=== PATIENT | female | born 1930 | race Caucasian/White ===

== ENCOUNTER 2017-02-05 21:54 | Inpatient (IN) | payer OTHER, MEDICARE, MEDICAID ==
[~2017-02-05] VITALS: Ht 152.4 cm; Wt 74.4 kg
[~2017-02-05 21:54] MED LIST: CLON0.1T PO; INSLAN SQ; LEVO75TA7 PO; MIRT15TA6 PO; SITA100T11 PO; VALS80TA2 PO; insulin
[2017-02-05 23:47] LABS: BASOPHILS % 0.4 % (0.0-2.0); EOSINOPHILS % 0.7 % (0.0-5.0); HEMATOCRIT. 30.9 % (36.0-48.0); HEMOGLOBIN. 9.9 g/dL (12.0-16.0); LYMPHOCYTES % 14.5 % (20.0-50.0); MEAN CORPUSCULAR VOLUME 81.3 fL (81.0-99.0); MEAN PLATELET VOLUME 9.3 fl (7.4-10.4); MONOCYTES % 13.6 % (2.0-8.0); NEUTROPHILS % 70.8 % (40.0-76.0); PLATELET 197 x1000/uL (130-400); RED BLOOD CELL COUNT 3.81 mill/uL (4.2-5.4); RED CELL DISTRIBUTION WIDTH 19.4 % (11.6-14.6)
[2017-02-05 23:55] LABS: CARBON DIOXIDE 32 mEq/L (21-32); CHLORIDE 100 mEq/L (98-107); TROPONIN I < 0.02 ng/mL (0.00-0.04)
[2017-02-06 00:18] LABS: BG BASE EXCESS 2.9 mmol/L (-2.0-2.0); BG DEOXYHEMOGLOBIN 2.7 % (0.0-5.0); BG FRACTION INSPIRED OXYGEN 28; BG HCO3 ACT 29.7 mmol/L (22.0-26.0); BG METHEMOGLOBIN 0.1 % (0.0-1.5); BG OXYGEN SATURATION 97.3 % (92.0-98.5); BG OXYHEMOGLOBIN 96.2 % (94.0-97.0); BG PCO2 55.9 mmHg (35.0-45.0); BG PH 7.343 (7.350-7.450); BG PO2 95.1 mmHg (75.0-100.0); BG SAMPLE SITE RIGHT BRACHIAL; BG TOTAL HEMOGLOBIN 11.9 g/dL (12.0-18.0); BG VENT MODE NASAL CANNULA
[2017-02-06] MEDS ORDERED: MAGNESIUM/ALUMINUM HYDROXIDE/SIMETHICONE 30ML UDC PO PRN (09:00)
[2017-02-06] MEDS ORDERED: ACETAMINOPHEN 650MG/20.3ML UDC GT PRN (09:00)
[2017-02-06] MEDS ORDERED: DIPHENHYDRAMINE 50MG/ML VIAL IV PRN (09:00)
[2017-02-06] MEDS ORDERED: ENOXAPARIN 40MG/0.4ML SYR SUBCUT SCH (09:00)
[2017-02-06] MEDS ORDERED: IPRATROPIUM/ALBUTEROL 0.5-3(2.5)MG/3ML NEB INH PRN (09:00)
[2017-02-06] MEDS ORDERED: GUAIFENESIN 200MG/10ML SUGAR FREE UDC PO PRN (09:00)
[2017-02-06] MEDS ORDERED: CLONIDINE 0.1MG TABLET PO PRN (09:00)
[2017-02-06] MEDS ORDERED: NA PHOS,M-B/NA PHOS,DI-BA ENEMA 118ML PR PRN (09:00)
[2017-02-06] MEDS ORDERED: HYDROCODONE/ACETAMINOPHEN 5/325MG TABLET PO PRN (09:00)
[2017-02-06] MEDS ORDERED: ACETAMINOPHEN 325MG TABLET PO PRN (09:00)
[2017-02-06] MEDS ORDERED: ONDANSETRON HCL 4MG/2ML VIAL IV PRN (09:00)
[2017-02-06] MEDS ORDERED: LORAZEPAM 2MG/ML CPJ IV PRN (09:00)
[2017-02-06 09:22] LABS: BASOPHILS % 0.6 % (0.0-2.0); EOSINOPHILS % 1.3 % (0.0-5.0); HEMATOCRIT. 29.6 % (36.0-48.0); HEMOGLOBIN. 9.2 g/dL (12.0-16.0); LYMPHOCYTES % 13.9 % (20.0-50.0); MEAN CORPUSCULAR HEMOGLOBIN 25.3 pg (28.0-32.0); MEAN CORPUSCULAR VOLUME 81.4 fL (81.0-99.0); MEAN PLATELET VOLUME 8.9 fl (7.4-10.4); MONOCYTES % 12.1 % (2.0-8.0); NEUTROPHILS % 72.1 % (40.0-76.0); PLATELET 185 x1000/uL (130-400); RED BLOOD CELL COUNT 3.64 mill/uL (4.2-5.4); RED CELL DISTRIBUTION WIDTH 19.9 % (11.6-14.6)
[2017-02-06 09:27] LABS: CHLORIDE 101 mEq/L (98-107)
[2017-02-06 09:38] LABS: CARBON DIOXIDE 32 mEq/L (21-32)
[2017-02-06 09:58] VITALS: BP 131/52
[2017-02-06] MEDS: FUROSEMIDE 40MG/4ML VIAL IV SCH (10:28)
[2017-02-06] MEDS ORDERED: ERGO500013 PO (11:07)
[2017-02-06] MEDS ORDERED: CARB1TAB5 PO (11:07)
[2017-02-06] MEDS ORDERED: GABA-531 PO (11:07)
[2017-02-06] MEDS ORDERED: APIX2.5T PO (11:07)
[2017-02-06] MEDS ORDERED: TAMS-11 PO (11:07)
[2017-02-06] MEDS ORDERED: FURO40TA5 PO (11:07)
[2017-02-06] MEDS ORDERED: HYDR200T PO (11:07)
[2017-02-06] MEDS ORDERED: ESCI10TA PO (11:07)
[2017-02-06] MEDS ORDERED: PRAV80TA PO (11:07)
[2017-02-06] MEDS ORDERED: ALBU90AE IH (11:07)
[2017-02-06] MEDS ORDERED: MIRT30TA PO (11:07)
[2017-02-06] MEDS ORDERED: METO25TA6 PO (11:07)
[2017-02-06] MEDS ORDERED: NEPVIT PO (11:07)
[2017-02-06] MEDS ORDERED: INSLIS SUBCUT (11:07)
[2017-02-06] MEDS ORDERED: DONE10TA11 PO (11:07)
[2017-02-06] MEDS ORDERED: LANTUSUD SUBCUT (11:07)
[2017-02-06] MEDS ORDERED: MELA3TAB PO (11:07)
[2017-02-06] MEDS ORDERED: OMEP20CA10 PO (11:07)
[2017-02-06] MEDS ORDERED: ONDA4TAB5 PO (11:07)
[2017-02-06] MEDS ORDERED: SENN-169 PO (11:07)
[2017-02-06 11:21] VITALS: BP 138/63
[2017-02-06] MEDS: ENOXAPARIN 30MG/0.3ML SYR SUBCUT SCH (11:49)
[2017-02-06 12:11] VITALS: BP 131/52
[2017-02-06] MEDS: IPRATROPIUM/ALBUTEROL 0.5-3(2.5)MG/3ML NEB INH SCH ×2 (13:02→20:04)
[2017-02-06 15:30] VITALS: BP 101/52
[2017-02-06] MEDS: SODIUM CHLORIDE 0.9% INJ 3ML FLUSH IVF SCH ×2 (17:10→23:03)
[2017-02-06 18:36] LABS: CREATINE KINASE 36 IU/L (26-192); TROPONIN I < 0.02 ng/mL (0.00-0.04)
[2017-02-06] MEDS ORDERED: DEXTROSE 50% WATER 50ML SYRINGE IV PRN (18:45)
[2017-02-06 18:50] LABS: HEPATITIS B SURFACE ANTIGEN NEGATIVE
[2017-02-06 20:00] VITALS: BP 104/62
[2017-02-06] MEDS: BLOOD SUGAR DIAGNOSTIC STRIP TEST SCH (21:00)
[2017-02-06] MEDS: INSULIN LISPRO 100 UNITS/ML SUBCUT SCH (21:00)
[2017-02-06] MEDS: EPOETIN ALFA 4000UNITS/ML VIAL SUBCUT SCH (23:03)
[2017-02-07] VITALS: BP 113/61
[2017-02-07] MEDS: IPRATROPIUM/ALBUTEROL 0.5-3(2.5)MG/3ML NEB INH SCH ×4 (01:40→20:27)
[2017-02-07 01:56] LABS: CREATINE KINASE 34 IU/L (26-192); TROPONIN I < 0.02 ng/mL (0.00-0.04)
[2017-02-07 04:00] VITALS: BP 121/58
[2017-02-07 06:55] LABS: BASOPHILS % 0.7 % (0.0-2.0); EOSINOPHILS % 0.6 % (0.0-5.0); HEMATOCRIT. 30.2 % (36.0-48.0); HEMOGLOBIN. 9.4 g/dL (12.0-16.0); LYMPHOCYTES % 13.2 % (20.0-50.0); MEAN CORPUSCULAR HEMOGLOBIN 25.8 pg (28.0-32.0); MEAN CORPUSCULAR VOLUME 82.9 fL (81.0-99.0); NEUTROPHILS % 74.5 % (40.0-76.0); PLATELET 183 x1000/uL (130-400); RED BLOOD CELL COUNT 3.64 mill/uL (4.2-5.4); RED CELL DISTRIBUTION WIDTH 19.9 % (11.6-14.6)
[2017-02-07] MEDS: BLOOD SUGAR DIAGNOSTIC STRIP TEST SCH ×4 (07:20→20:58)
[2017-02-07 07:41] LABS: CARBON DIOXIDE 28 mEq/L (21-32); CHLORIDE 103 mEq/L (98-107)
[2017-02-07] MEDS: INSULIN LISPRO 100 UNITS/ML SUBCUT SCH ×4 (07:50→20:58)
[2017-02-07 08:00] VITALS: BP 136/67
[2017-02-07] MEDS: FUROSEMIDE 40MG/4ML VIAL IV SCH (08:52)
[2017-02-07] MEDS: ENOXAPARIN 30MG/0.3ML SYR SUBCUT SCH (08:52)
[2017-02-07 11:01] LABS: BG BASE EXCESS 2.1 mmol/L (-2.0-2.0); BG DEOXYHEMOGLOBIN 4.2 % (0.0-5.0); BG FRACTION INSPIRED OXYGEN 28; BG HCO3 ACT 28.8 mmol/L (22.0-26.0); BG METHEMOGLOBIN 0.2 % (0.0-1.5); BG OXYGEN SATURATION 95.8 % (92.0-98.5); BG OXYHEMOGLOBIN 95.6 % (94.0-97.0); BG PCO2 55.3 mmHg (35.0-45.0); BG PH 7.334 (7.350-7.450); BG PO2 84.3 mmHg (75.0-100.0); BG SAMPLE SITE RIGHT BRACHIAL; BG TOTAL HEMOGLOBIN 10.7 g/dL (12.0-18.0); BG VENT MODE NASAL CANNULA
[2017-02-07 12:00] VITALS: BP 130/64
[2017-02-07] MEDS: SODIUM CHLORIDE 0.9% INJ 3ML FLUSH IVF SCH ×3 (13:15→20:59)
[2017-02-07 16:00] VITALS: BP 123/59
[2017-02-07] MEDS: DOCUSATE SODIUM 100MG CAPSULE PO PRN (17:47)
[2017-02-07 19:32] VITALS: BP 110/60
[2017-02-08] VITALS (7 sets, daily range): BP systolic 105–152; BP diastolic 47–82
[2017-02-08] MEDS: IPRATROPIUM/ALBUTEROL 0.5-3(2.5)MG/3ML NEB INH SCH ×4 (01:33→20:35)
[2017-02-08] MEDS: SODIUM CHLORIDE 0.9% INJ 3ML FLUSH IVF SCH ×3 (06:00→21:39)
[2017-02-08] MEDS: BLOOD SUGAR DIAGNOSTIC STRIP TEST SCH ×4 (06:34→21:40)
[2017-02-08 08:00] LABS: BASOPHILS % 0.6 % (0.0-2.0); EOSINOPHILS % 0.5 % (0.0-5.0); HEMATOCRIT. 31.8 % (36.0-48.0); LYMPHOCYTES % 11.3 % (20.0-50.0); MEAN CORPUSCULAR HEMOGLOBIN 26.1 pg (28.0-32.0); MEAN CORPUSCULAR VOLUME 82.8 fL (81.0-99.0); MONOCYTES % 9.3 % (2.0-8.0); NEUTROPHILS % 78.3 % (40.0-76.0); PLATELET 202 x1000/uL (130-400); RED BLOOD CELL COUNT 3.84 mill/uL (4.2-5.4); RED CELL DISTRIBUTION WIDTH 20.2 % (11.6-14.6)
[2017-02-08 08:23] LABS: PHOSPHORUS 3.5 mg/dL (2.5-4.9)
[2017-02-08] MEDS: INSULIN LISPRO 100 UNITS/ML SUBCUT SCH ×4 (08:40→21:00)
[2017-02-08] MEDS: DOCUSATE SODIUM 100MG CAPSULE PO PRN (08:42)
[2017-02-08] MEDS: ENOXAPARIN 30MG/0.3ML SYR SUBCUT SCH (08:42)
[2017-02-08] MEDS: FUROSEMIDE 40MG/4ML VIAL IV SCH (08:42)
[2017-02-08] MEDS: EPOETIN ALFA 4000UNITS/ML VIAL SUBCUT SCH (21:39)
== END 2017-02-08 23:00 | disposition home or self-care (01) | DRG 133 ==
LOC: ER 22:14 → 6WST 02-06 02:43 → EDBEDREQTM 02-06 02:51 → EDBEDREQ 02-06 02:51 → ENRESERV 02-06 08:14
PROVIDERS: ADMIT Family Medicine; ATTEND Family Medicine
PROC: 5A09457 Assistance with Respiratory Ventilation, 24-96 Consecutive Hours, Continuous Positive Airway Pressure (ICD-10-PCS; principal; 2017-02-06)
PROC: 5A1D70Z Performance of Urinary Filtration, Intermittent, Less than 6 Hours Per Day (ICD-10-PCS; 2017-02-08)
DX: J96.00 Acute respiratory failure, unspecified whether with hypoxia or hypercapnia (principal); I13.2 Hypertensive heart and chronic kidney disease with heart failure and with stage 5 chronic kidney disease, or end stage renal disease; N18.6 End stage renal disease; E11.22 Type 2 diabetes mellitus with diabetic chronic kidney disease; E11.40 Type 2 diabetes mellitus with diabetic neuropathy, unspecified; I48.2 Chronic atrial fibrillation; D63.8 Anemia in other chronic diseases classified elsewhere; E03.9 Hypothyroidism, unspecified; K59.00 Constipation, unspecified; F41.9 Anxiety disorder, unspecified; E87.70 Fluid overload, unspecified; E78.5 Hyperlipidemia, unspecified; I50.9 Heart failure, unspecified; J44.9 Chronic obstructive pulmonary disease, unspecified; Z79.01 Long term (current) use of anticoagulants; Z86.73 Personal history of transient ischemic attack (TIA), and cerebral infarction without residual deficits; Z88.8 Allergy status to other drugs, medicaments and biological substances; Z99.2 Dependence on renal dialysis; Z79.4 Long term (current) use of insulin; Z79.899 Other long term (current) drug therapy
CPT/HCPCS: 36415; 36600; 71010; 80048; 80053; 82375; 82550; 82805; 82962; 83605; 83735; 84100; 84484; 85025; 86803; 87040; 87340; 93005; 93306; 94640; 94660; 94664; 99291; J0885; J1200; J1650; J1815; J1940; J7030; J7040; J7620

== ENCOUNTER 2018-10-11 02:31 | Emergency (ER) | payer MEDICARE, MEDICAID ==
[~2018-10-11] VITALS: Ht 175.3 cm; Wt 186.0 kg
[~2018-10-11 02:31] MED LIST changes: +ALBU90AE IH; +APIX2.5T PO; +CARB1TAB5 PO; -CLON0.1T PO; +DONE10TA11 PO; +ERGO500013 PO; +ESCI10TA PO; +FURO40TA5 PO; +GABA-531 PO; +HYDR200T80 PO; -INSLAN SQ; +INSLIS SUBCUT; +LANTUSUD SUBCUT; +MELA3TAB PO; +METO25TA6 PO; -MIRT15TA6 PO; +MIRT30TA PO; +NEPVIT PO; +OMEP20CA5 PO; +ONDA4TAB5 PO; +PRAV80TA PO; +SENN-170 PO; -SITA100T11 PO; +TAMS-11 PO; -VALS80TA2 PO; -insulin
[2018-10-11 02:35] VITALS: BP 236/77
[2018-10-11] MEDS ORDERED: EPINEPHRINE 0.1MG/ML (1:10,000) 10ML SYR ONE (02:41)
[2018-10-11] MEDS ORDERED: DEXTROSE 50% WATER 50ML SYRINGE IV ONE ×2 (02:45→02:51)
[2018-10-11] MEDS ORDERED: ATROPINE SULFATE 1MG/10ML SYR ONE (02:45)
[2018-10-11] MEDS ORDERED: CALCIUM CHLORIDE 1GM/10ML SYR IV ONE (02:45)
[2018-10-11] MEDS ORDERED: SODIUM BICARBONATE 8.4% MEQ/ML 50ML VIAL IV ONE (02:45)
[2018-10-11] MEDS ORDERED: INSULIN REGULAR (HUMULIN R) 300UNITS/3ML IV NR (03:00)
[2018-10-11] MEDS ORDERED: DOPAMINE 400MG/250ML PREMIX 250 ML IV ONE (03:11)
[2018-10-11 05:06] LABS: BG BASE EXCESS -29.1 mmol/L (-2.0-2.0); BG FRACTION INSPIRED OXYGEN 100; BG HCO3 ACT 4.5 mmol/L (22.0-26.0); BG PCO2 27.6 mmHg (35.0-45.0); BG PH 6.831 (7.350-7.450); BG PO2 119.9 mmHg (75.0-100.0); BG SAMPLE SITE RIGHT RADIAL; BG VENT MODE AMBU BAG
== END 2018-10-11 06:25 | disposition expired ==
LOC: ER 02:36
DX: I13.2 Hypertensive heart and chronic kidney disease with heart failure and with stage 5 chronic kidney disease, or end stage renal disease (principal); N18.6 End stage renal disease; I50.9 Heart failure, unspecified; I46.9 Cardiac arrest, cause unspecified; E66.01 Morbid (severe) obesity due to excess calories; Z99.2 Dependence on renal dialysis; Z68.44 Body mass index [BMI] 60.0-69.9, adult; Z79.899 Other long term (current) drug therapy; Z88.8 Allergy status to other drugs, medicaments and biological substances
CPT/HCPCS: 36556; 36600; 82805; 92950; 96374; 99285; J0461; J1265; J1815; J3490